=== PATIENT | female | born 2000 | race Native Hawaiian/Other Pacific Islander ===

== ENCOUNTER 2024-07-15 18:24 | Emergency (ER) | payer OTHER, SELFPAY ==
--- NOTE | ~2024-07-15 | XR_ITS ---
CLINICAL HISTORY: sob, wheezy 2 view chest x-ray Comparison: None Findings: No consolidation or effusion. Normal size heart. No acute fracture. Scattered mediastinal and epigastric clips. IMPRESSION: 1. No acute findings. This document has been electronically signed by: Tony Jeffrey MD on 07/15/2024 20:16:11
[2024-07-15 18:31] VITALS: BP 141/82; PULSE 108; RESP 18; TEMP 36.6; O2SAT 95; BMI 20.4
--- NOTE | 2024-07-15 18:32 | ED.GENADULT ---
HPI - General Adult General Chief complaint: Asthma Stated complaint: asthma Time Seen by Provider: 07/15/24 20:27 Source: patient Limitations: no limitations History of Present Illness ED Provider: Lilibeth Marquez PA-C HPI narrative: 23-year-old female presents with wheezing. Patient states over the past 2 days her asthma has been exacerbated. She has seasonal allergies. Denies cough cold symptoms or fever. Related Data Previous Rx's ?Medication ?Instructions ?Recorded prednisone 20 mg tablet 40 mg (2 x 20 mg) PO DAILY #8 tabs 07/15/24 Allergies Allergy/AdvReac Type Severity Reaction Status Date / Time cat dander [CAT] Allergy Unknown UNKNOWN Verified 07/15/24 18:32 dog dander [DOG] Allergy Unknown UNKNOWN Unverified 12/03/19 16:55 Review of Systems Review of Systems: Yes all other systems are reviewed and are negative Constitutional: Constitutional: Denies fatigue and Denies fever(s) Cardiovascular: Cardiovascular: Denies chest pain and Reports dyspnea Respiratory: Respiratory: Denies chest congestion, Reports cough, Reports dyspnea and Reports wheezing Gastrointestinal: Gastrointestinal: Denies diarrhea, Denies nausea and Denies vomiting Endocrine: Endocrine: Denies fatigue Allergic/Immunologic: Allergic/Immunologic: Reports wheezing PMFSH Past Medical History Attestation statement: The following information was validated with the patient. Social History Social History Smoked in Last 30 Days: No Use of substances other than those prescribed or required for medical reasons: Yes Substance Use Type: Marijuana Advance Directives: No Advance Directives Information Provided: Yes Patient : No Physical Exam ED Vital Signs: Vital Signs - 24 hr 07/15/24 18:31 07/15/24 20:39 07/15/24 21:03 Temperature 97.9 F 98.8 F Pulse Rate 108 H 104 H 111 H Respiratory Rate 18 20 22 H Blood Pressure 141/82 H 114/80 Pulse Oximetry 95 95 Oxygen Delivery Method Room Air Room Air BMI result Body Mass Index 20.4 Const Other: Alert well-appearing Orientation/consciousness: patient oriented x3 Resp Other: Not tachypneic, scattered expiratory wheezes posterior bear active bronchospasm cough Cardio Other: Normal peripheral perfusion Skin Other: Warm dry no rash Neuro General: patient oriented x3, gait normal, no focal motor deficits and CN's II-XI intact bilaterally Psych Other: Cooperative Course Course Course Narrative: This is a Rapid Medical Examination (RME) performed by Rodri Fernandez PA-C in triage. Full HPI, ROS, assessment and treatment plan per primary provider in the Main ED. Hx: 23 yo female hx asthma here for eval of chest tightness and sob since yesterday. Using your inhaler at home with little relief. PE/vitals: Tachycardic, satting 97% on room air. + faint scattered expiratory wheezes. No tripoding. No respiratory distress Plan: labs, ekg, cxr, viral swabs Reevaluation(s) Reevaluation #1: Improved after 2nd updraft eager for discharge, she has a albuterol solution for her nebulizer at home Medications Administered Generic Name Dose Route Start Last Admin Trade Name Freq PRN Reason Stop Dose Admin Magnesium Sulfate 2 gm in 50 mls @ 25 mls/hr 07/15/24 20:46 07/15/24 20:50 Magnesium Sulfate/H2o IV 07/15/24 22:45 25 mls/hr ONCE ONE Administration Discontinued Medications Generic Name Dose Route Start Last Admin Trade Name Freq PRN Reason Stop Dose Admin Albuterol/Ipratropium 3 ml 07/15/24 21:00 07/15/24 21:01 Albuterol/Iprat 2.5/0.5mg 3 Ml Ampul.Neb INHALE 07/15/24 21:01 3 ml ONCE ONE Administration Prednisone 40 mg 07/15/24 20:43 07/15/24 20:50 Prednisone 20 Mg Tablet PO 07/15/24 20:44 40 mg ONCE ONE Administration Medical Decision Making Medical Decision Making MDM Narrative: 23-year-old female presents with wheezing. Patient states over the past 2 days her asthma has been exacerbated. She has seasonal allergies. Denies cough cold symptoms or fever. Problem: Asthma History: Per patient I have considered the following differential diagnoses: Asthma exacerbation, bronchitis, pneumonia, viral syndrome Plan: Patient here with asthma exacerbation induced by allergens, she had 1 updraft, she requires another, giving 2 g of magnesium, prednisone, additional updraft. Screening labs including viral panel chest x-ray already obtained from triage. I have independently reviewed the following tests: Labs: Slight leukocytosis, not anemic, no electrolyte abnormality, viral panel negative Chest x-ray:Findings: No consolidation or effusion. Normal size heart. No acute fracture. Scattered mediastinal and epigastric clips. IMPRESSION: 1. No acute findings. Lab Data 07/15/24 18:50 07/15/24 18:50 Labs: Lab Results 07/15/24 Range/Units 18:50 WBC 13.2 H (4.8-10.8) X10*3/uL RBC 4.31 (4.20-5.50) X10*6/uL Hgb 14.0 (12.0-16.0) g/dl Hct 40.0 (37.0-47.0) % MCV 92.8 (80.0-98.0) fL MCH 32.5 (27.0-33.0) pg MCHC 35.0 (31.0-35.0) g/dl RDW 12.7 (11.0-16.0) % Plt Count 247 (160-400) X10*3/uL MPV 10.3 (9.4-12.3) fL Immature Gran % (Auto) 0.5 H (0.0-0.4) % Neut % (Auto) 84.2 H (45-73) % Lymph % (Auto) 7.5 L (20-40) % [place] % (Auto) 6.2 (2-11) % Eos % (Auto) 1.4 (0-4) % Baso % (Auto) 0.2 (0-2) % Lymph # (Auto) 1.0 L (1.2-4.9) X10*3/uL [place] # (Auto) 0.8 (0.1-1.2) X10*3/uL Eos # (Auto) 0.2 (0.0-0.4) X10*3/uL Baso # (Auto) 0.0 (0.0-0.2) X10*3/uL Abs Immat Gran (auto) 0.06 H (0.00-0.03) X10*3/uL Absolute Neuts (auto) 11.1 H (2.0-8.3) x10*3/uL Absolute Nucleated RBC 0.000 (0.0-0.012) X10*3/uL Nucleated RBC % (auto) 0.0 (0.0-0.2) /100WBC Sodium 140 (135-145) mmol/L Potassium 3.7 (3.3-5.1) mmol/L Chloride 107 (96-108) mmol/L Carbon Dioxide 21 L (22-29) mmol/L Anion Gap 16 (12-20) BUN 9 (9-16) mg/dL Creatinine 0.68 (0.5-1.4) mg/dL Estim Creat Clear Calc 78.4 Estimated GFR > 60 Random Glucose 91 (60-115) mg/dL Calcium 9.5 (8.4-10.2) mg/dL Magnesium 1.9 (1.6-2.6) mg/dL Total Bilirubin 0.5 (0.0-1.0) mg/dL AST 27 (5-31) U/L ALT 18 (0-31) U/L Alkaline Phosphatase 81 (39-117) U/L Troponin I High Sens < 2.7 (<3.5-17.0) ng/L Total Protein 7.4 (6.5-8.0) g/dL Albumin 4.5 (3.5-5.0) g/dL Influenza Type A (PCR) NEGATIVE (Negative) Influenza Type B (PCR) NEGATIVE (Negative) RSV RNA Qual (PCR) NEGATIVE (Negative) SARS-CoV-2 RNA (RT-PCR) NEGATIVE (Negative) Discharge Plan Discharge Clinical Impression: Asthma with acute exacerbation, Seasonal allergies Patient Disposition: Home, Self-Care Instructions: Asthma (ED) Additional Instructions: All of your screening labs including a viral panel were negative, you were screened for influenza RSV and COVID. The chest x-ray is clear there was no pneumonia. You were treated for an asthma exacerbation induced by your seasonal allergies. Use your albuterol as directed, take the steroid as directed. Follow up with your primary care provider as needed. Given the fact that seasonal allergies affect your asthma, you should start taking an antihistamine such as OTC Zyrtec, daily, throughout the entire season. Prescriptions: New prednisone 20 mg tablet 40 mg PO DAILY Qty: 8 0RF Print Language: Moldovan
--- NOTE | 2024-07-15 18:33 | ECG_ITS ---
Test Reason : SOB Blood Pressure : */* mmHG Vent. Rate : 109 BPM Atrial Rate : 109 BPM P-R Int : 124 ms QRS Dur : 76 ms QT Int : 330 ms P-R-T Axes : 78 82 38 degrees QTcB Int : 444 ms Sinus tachycardia Cannot rule out Anterior infarct , age undetermined Abnormal ECG When compared with ECG of 25-Nov-2016 22:40, Nonspecific T wave abnormality now evident in Inferior leads Referred By: Kenyatta Fernandez Electronically Signed By: Herberth aH
[2024-07-15 18:57] LABS: Basophils Percent Auto 0.2 % (0-2); Eosinophils Absolute Auto 0.2 X10*3/uL (0.0-0.4); Eosinophils Percent Auto 1.4 % (0-4); Imm Gran Abs Auto 0.06 X10*3/uL (0.00-0.03); Imm Gran Pct Auto 0.5 % (0.0-0.4); Lymphocytes Percent Auto 7.5 % (20-40); MANUAL DIFF FLAG NO; Mean Corpuscular Hemoglobin 32.5 pg (27.0-33.0); Mean Corpuscular Volume 92.8 fL (80.0-98.0); Mean Platelet Volume 10.3 fL (9.4-12.3); Monocytes Absolute Auto 0.8 X10*3/uL (0.1-1.2); Monocytes Percent Auto 6.2 % (2-11); Neutrophils Absolute Auto 11.1 x10*3/uL (2.0-8.3); Neutrophils Percent Auto 84.2 % (45-73); Platelet Count 247 X10*3/uL (160-400); Red Blood Count 4.31 X10*6/uL (4.20-5.50); Red Cell Distribution Width 12.7 % (11.0-16.0); White Blood Count 13.2 X10*3/uL (4.8-10.8)
[2024-07-15 19:15] LABS: Alanine Aminotransferase 18 U/L (0-31); Albumin Level 4.5 g/dL (3.5-5.0); Alkaline Phosphatase 81 U/L (39-117); Anion Gap 16 (12-20); Aspartate Amino Transferase 27 U/L (5-31); Bilirubin Total 0.5 mg/dL (0.0-1.0); Blood Urea Nitrogen 9 mg/dL (9-16); Calcium 9.5 mg/dL (8.4-10.2); Carbon Dioxide 21 mmol/L (22-29); Chloride 107 mmol/L (96-108); Creatinine Clr Calc Pharmacy 78.4; Estimated Glomerular Filt Rate > 60; Glucose Random 91 mg/dL (60-115); Magnesium 1.9 mg/dL (1.6-2.6); Potassium 3.7 mmol/L (3.3-5.1); Sodium 140 mmol/L (135-145); Total Protein 7.4 g/dL (6.5-8.0)
[2024-07-15 19:18] LABS: Troponin-I High Sensitivity < 2.7 ng/L (<3.5-17.0)
[2024-07-15 19:35] LABS: Influenza A PCR NEGATIVE (Negative); Influenza B PCR NEGATIVE (Negative); Resp Syncy Virus RNA Qual PCR NEGATIVE (Negative); SARS COV2 PCR INHOUSE NEGATIVE (Negative)
[2024-07-15 20:39] VITALS: BP 114/80; PULSE 104; RESP 20; TEMP 37.1; O2SAT 95
[2024-07-15] MEDS: Magnesium Sulfate/H2O 2 GM/50 ML PIGGYBACK IV (20:50)
[2024-07-15] MEDS: predniSONE 20 MG TABLET 40 MG PO (20:50)
[2024-07-15] MEDS: Albuterol/Iprat 2.5/0.5MG 3 ML AMPUL.NEB INHALE (21:01)
[2024-07-15 21:03] VITALS: PULSE 111; RESP 22; O2SAT 95
[2024-07-15 21:52] VITALS: BP 110/66; PULSE 112; RESP 22; TEMP 37.1; O2SAT 96
[2024-07-15 22:00] VITALS: BP 110/66; PULSE 112; RESP 22; TEMP 37.1; O2SAT 96
[2024-07-15 22:09] VITALS: BP 110/66; PULSE 112; RESP 22; TEMP 37.1; O2SAT 96
== END 2024-07-15 22:10 | disposition home or self-care (01) ==
PROVIDERS: Physician Assistant Medical; Emergency Provider Emergency Medicine
DX: J45.901 Unspecified asthma with (acute) exacerbation (principal); R05.9 Cough, unspecified; Z03.818 Encounter for observation for suspected exposure to other biological agents ruled out
CPT/HCPCS: 0241U; 36415; 71046; 80053; 83735; 84484; 85025; 93005; 94640; 96374; 99284; 99285; J3475

== ENCOUNTER → 2024-07-15 18:33 | Outpatient (BNV) | payer OTHER, SELFPAY | PROVIDERS: Visit Provider Radiology Diagnostic Radiology | DX: R06.02 Shortness of breath (principal); R06.2 Wheezing | CPT/HCPCS: 71046 ==

== ENCOUNTER → 2024-07-15 18:33 | Outpatient (BNV) | payer OTHER, SELFPAY | PROVIDERS: Emergency Provider Emergency Medicine; Visit Provider Internal Medicine Cardiovascular Disease | DX: R00.0 Tachycardia, unspecified (principal) | CPT/HCPCS: 93010 ==